=== PATIENT | female | born 2000 | race Caucasian/White ===

== ENCOUNTER 2022-03-02 07:11 | Inpatient (IN) | payer MEDICAID ==
[~2022-03-02] VITALS: Ht 167.6 cm; Wt 151.5 kg
[2022-03-02] MEDS ORDERED: MORPHINE SULFATE 4 MG/ML CPJ (NOT FOR IM USE) IV ONE ×2 (07:45→09:45)
[2022-03-02] MEDS ORDERED: ONDANSETRON HCL 4MG/2ML INJ IV ONE (07:45)
[2022-03-02 08:13] LABS: BASOPHILS % 0.2 % (0.0-2.0); EOSINOPHILS % 0.6 % (0.0-5.0); HEMOGLOBIN. 12.5 g/dL (12.0-16.0); LYMPHOCYTES % 12.5 % (20.0-50.0); MEAN CORPUSCULAR HEMOGLOBIN 27.5 pg (28.0-32.0); MEAN CORPUSCULAR VOLUME 85.5 fL (81.0-99.0); MEAN PLATELET VOLUME 8.9 fl (7.4-10.4); MONOCYTES % 6.7 % (2.0-8.0); PLATELET 329 x1000/uL (130-400); RED BLOOD CELL COUNT 4.56 mill/uL (4.2-5.4); RED CELL DISTRIBUTION WIDTH 14.5 % (11.6-14.6)
[2022-03-02 08:18] LABS: CLARITY URINE CLOUDY (CLEAR); COLOR URINE DARK YELLOW (YELLOW); KETONES URINE TRACE (NEGATIVE); LEUKOCYTE ESTERASE URINE 1+ (NEGATIVE); NITRITE URINE NEGATIVE (NEGATIVE); OCCULT BLOOD URINE TRACE (NEGATIVE); PH URINE 5.5 (4.5-8.0); PROTEIN URINE TRACE (NEGATIVE); SPECIFIC GRAVITY URINE 1.025 (1.005-1.030)
[2022-03-02 08:21] LABS: CHLORIDE 102 mEq/L (98-107)
[2022-03-02 08:24] LABS: HCG SCREEN NEGATIVE
[2022-03-02 09:31] LABS: INR 1.1
[2022-03-02] MEDS ORDERED: METRONIDAZOLE 500 MG PREMIX 100 ML IV ONE (09:45)
[2022-03-02] MEDS ORDERED: LEVOFLOXACIN 750MG PREMIX 150 ML IV ONE (09:45)
[2022-03-02] MEDS ORDERED: ACETAMINOPHEN 325MG TABLET PO PRN (17:00)
[2022-03-02] MEDS ORDERED: DIPHENHYDRAMINE 50MG/ML VIAL IV PRN (17:00)
[2022-03-02] MEDS ORDERED: CLONIDINE 0.1MG TABLET PO PRN (17:00)
[2022-03-02] MEDS ORDERED: ONDANSETRON HCL 4MG/2ML INJ IV PRN (17:00)
[2022-03-02] MEDS ORDERED: IPRATROPIUM/ALBUTEROL 0.5-3(2.5)MG/3ML NEB HHN PRN (17:00)
[2022-03-02] MEDS: SODIUM CHLORIDE 0.9% 1,000 ML IV SCH (17:30)
[2022-03-02 17:43] VITALS: BP 117/58
[2022-03-02] MEDS: MORPHINE SULFATE 2 MG/ML CPJ (NOT FOR IM USE) IV PRN (18:58)
[2022-03-02] MEDS: METRONIDAZOLE 500 MG PREMIX 100 ML IV SCH (21:39)
[2022-03-03] MEDS: MORPHINE SULFATE 2 MG/ML CPJ (NOT FOR IM USE) IV PRN ×4 (00:21→22:14)
[2022-03-03] MEDS: METRONIDAZOLE 500 MG PREMIX 100 ML IV SCH ×3 (05:13→22:09)
[2022-03-03] MEDS: SODIUM CHLORIDE 0.9% 1,000 ML IV SCH ×3 (05:14→17:30)
[2022-03-03 05:36] LABS: BASOPHILS % 0.2 % (0.0-2.0); HEMATOCRIT. 33.4 % (36.0-48.0); HEMOGLOBIN. 10.9 g/dL (12.0-16.0); LYMPHOCYTES % 17.7 % (20.0-50.0); MEAN CORPUSCULAR HEMOGLOBIN 27.8 pg (28.0-32.0); MONOCYTES % 7.2 % (2.0-8.0); NEUTROPHILS % 73.9 % (40.0-76.0); PLATELET 262 x1000/uL (130-400); RED BLOOD CELL COUNT 3.92 mill/uL (4.2-5.4); RED CELL DISTRIBUTION WIDTH 14.3 % (11.6-14.6)
[2022-03-03 06:22] LABS: CHLORIDE 106 mEq/L (98-107)
[2022-03-03 08:00] VITALS: BP 113/66
[2022-03-03] MEDS: LEVOFLOXACIN 500MG PREMIX 100 ML IV SCH (11:00)
[2022-03-03 12:00] VITALS: BP 133/74
[2022-03-03 16:00] VITALS: BP 122/55
[2022-03-03] MEDS ORDERED: NALOXONE HCL 0.4MG/ML VIAL IV PRN (17:30)
[2022-03-03 20:00] VITALS: BP 143/88
[2022-03-04] VITALS: BP 144/84
[2022-03-04 04:00] VITALS: BP 140/82
[2022-03-04] MEDS: MORPHINE SULFATE 2 MG/ML CPJ (NOT FOR IM USE) IV PRN ×2 (04:28→09:51)
[2022-03-04] MEDS: SODIUM CHLORIDE 0.9% 1,000 ML IV SCH ×3 (04:32→09:51)
[2022-03-04] MEDS: METRONIDAZOLE 500 MG PREMIX 100 ML IV SCH (05:28)
[2022-03-04 06:34] LABS: BASOPHILS % 0.3 % (0.0-2.0); EOSINOPHILS % 1.8 % (0.0-5.0); HEMATOCRIT. 33.2 % (36.0-48.0); HEMOGLOBIN. 11.1 g/dL (12.0-16.0); LYMPHOCYTES % 19.3 % (20.0-50.0); MEAN CORPUSCULAR HEMOGLOBIN 28.3 pg (28.0-32.0); MEAN PLATELET VOLUME 8.9 fl (7.4-10.4); NEUTROPHILS % 72.6 % (40.0-76.0); PLATELET 274 x1000/uL (130-400); RED BLOOD CELL COUNT 3.91 mill/uL (4.2-5.4); RED CELL DISTRIBUTION WIDTH 14.4 % (11.6-14.6)
[2022-03-04 06:39] LABS: INR 1.2; PROTHROMBIN TIME 12.7 sec (9.6-11.0)
[2022-03-04 07:08] LABS: CHLORIDE 104 mEq/L (98-107)
[2022-03-04 08:00] VITALS: BP 133/83
[2022-03-04] MEDS: LEVOFLOXACIN 500MG PREMIX 100 ML IV SCH (10:40)
[2022-03-04] MEDS ORDERED: ACET325T52 MT (11:29)
[2022-03-04] MEDS ORDERED: AMOX1TAB16 MT (11:29)
[2022-03-04 12:00] VITALS: BP 119/57
[2022-03-04 15:17] VITALS: BP 119/57
[2022-03-05] MEDS ORDERED: ONDA4TAB50 MT (15:28)
== END 2022-03-04 15:30 | disposition home or self-care (01) | DRG 720 ==
LOC: ER 07:11 → 6EST 12:43 → EDBEDREQ 12:48 → EDBEDREQTM 12:48
PROVIDERS: ADMIT Internal Medicine; ATTEND Internal Medicine
DX: A41.9 Sepsis, unspecified organism (principal); K57.92 Diverticulitis of intestine, part unspecified, without perforation or abscess without bleeding; E66.9 Obesity, unspecified; N39.0 Urinary tract infection, site not specified; F17.200 Nicotine dependence, unspecified, uncomplicated; Z68.43 Body mass index [BMI] 50.0-59.9, adult; Z87.442 Personal history of urinary calculi; J45.909 Unspecified asthma, uncomplicated
CPT/HCPCS: 36415; 74176; 80048; 80053; 80076; 81003; 84703; 85025; 99285; J1956; J2270; J2405; J3490; J7030

== ENCOUNTER 2022-03-05 10:42 | Emergency (ER) | payer MEDICAID ==
[~2022-03-05] VITALS: Ht 160 cm; Wt 181.8 kg
[~2022-03-05 10:42] MED LIST: ACET325T52 MT; AMOX1TAB16 MT
[2022-03-05] MEDS ORDERED: MORPHINE SULFATE 4 MG/ML CPJ (NOT FOR IM USE) IV STA (11:56)
[2022-03-05] MEDS ORDERED: ONDANSETRON HCL 4MG/2ML INJ IV STA (11:56)
[2022-03-05] MEDS ORDERED: SODIUM CHLORIDE 0.9% 1,000 ML IV ONE (12:00)
[2022-03-05 12:35] LABS: BASOPHILS % 0.4 % (0.0-2.0); EOSINOPHILS % 0.6 % (0.0-5.0); HEMATOCRIT. 37.7 % (36.0-48.0); HEMOGLOBIN. 12.3 g/dL (12.0-16.0); LYMPHOCYTES % 14.4 % (20.0-50.0); MEAN CORPUSCULAR HEMOGLOBIN 27.5 pg (28.0-32.0); MEAN CORPUSCULAR VOLUME 84.3 fL (81.0-99.0); MEAN PLATELET VOLUME 8.6 fl (7.4-10.4); MONOCYTES % 5.2 % (2.0-8.0); NEUTROPHILS % 79.4 % (40.0-76.0); PLATELET 359 x1000/uL (130-400); RED BLOOD CELL COUNT 4.47 mill/uL (4.2-5.4); RED CELL DISTRIBUTION WIDTH 14.5 % (11.6-14.6)
[2022-03-05 12:38] LABS: CHLORIDE 103 mEq/L (98-107)
[2022-03-05 12:46] LABS: HCG SCREEN NEGATIVE
[2022-03-05] MEDS ORDERED: ONDA4TAB50 MT (15:28)
[2022-03-05] MEDS ORDERED: AMOXICILLIN/POTASSIUM CLAVULANATE 875/125MG TAB PO NR (15:30)
[2022-03-05 15:55] VITALS: BP 113/95
[2022-03-05] MEDS ORDERED: IOHEXOL-300 100 ML BOTTLE ONE (16:09)
== END 2022-03-05 16:06 | disposition home or self-care (01) ==
LOC: ER 10:42
DX: R10.9 Unspecified abdominal pain (principal); R11.2 Nausea with vomiting, unspecified
CPT/HCPCS: 36415; 74177; 80053; 83605; 83690; 84703; 85025; 96361; 96374; 96375; 99285; J2270; J2405; J7030; Q9967

== ENCOUNTER 2022-06-30 12:19 | Emergency (ER) | payer MEDICAID ==
[~2022-06-30] VITALS: Ht 170.2 cm; Wt 106.0 kg
[~2022-06-30 12:19] MED LIST changes: +ONDA4TAB50 MT
[2022-06-30] MEDS ORDERED: FAMOTIDINE 20MG/2ML VIAL IV ONE (13:00)
[2022-06-30] MEDS ORDERED: ONDANSETRON HCL 4MG/2ML INJ IV ONE (13:00)
[2022-06-30] MEDS ORDERED: SODIUM CHLORIDE 0.9% 1,000 ML IV ONE (13:00)
[2022-06-30] MEDS ORDERED: MORPHINE SULFATE 2 MG/ML CPJ (NOT FOR IM USE) IV ONE (14:00)
[2022-06-30 14:15] VITALS: BP 117/68
[2022-06-30 14:21] LABS: BASOPHILS % 0.2 % (0.0-2.0); EOSINOPHILS % 0.4 % (0.0-5.0); HEMATOCRIT. 37.4 % (36.0-48.0); HEMOGLOBIN. 12.4 g/dL (12.0-16.0); LYMPHOCYTES % 10.6 % (20.0-50.0); MEAN CORPUSCULAR HEMOGLOBIN 28.5 pg (28.0-32.0); MEAN CORPUSCULAR VOLUME 85.6 fL (81.0-99.0); MEAN PLATELET VOLUME 8.8 fl (7.4-10.4); MONOCYTES % 4.3 % (2.0-8.0); NEUTROPHILS % 84.5 % (40.0-76.0); PLATELET 316 x1000/uL (130-400); RED BLOOD CELL COUNT 4.37 mill/uL (4.2-5.4); RED CELL DISTRIBUTION WIDTH 13.9 % (11.6-14.6)
[2022-06-30 14:40] LABS: INR 1.1; PROTHROMBIN TIME 11.9 sec (9.6-11.0)
[2022-06-30 14:41] LABS: HCG SCREEN NEGATIVE
[2022-06-30 14:43] LABS: CHLORIDE 107 mEq/L (98-107)
== END 2022-06-30 17:04 | disposition left against medical advice (07) ==
LOC: ER 13:37
DX: R10.84 Generalized abdominal pain (principal); J45.909 Unspecified asthma, uncomplicated
CPT/HCPCS: 36415; 80053; 83690; 84703; 85025; 85610; 96361; 96374; 96375; 99284; J2270; J2405; J3490; J7030

== ENCOUNTER 2022-12-01 08:48 | Emergency (ER) | payer OTHER ==
[~2022-12-01] VITALS: Ht 160 cm; Wt 165.0 kg
[2022-12-01 09:05] VITALS: O2SAT 98
[2022-12-01 10:41] LABS: CLARITY URINE CLOUDY (CLEAR); COLOR URINE YELLOW (YELLOW); GLUCOSE URINE NEGATIVE (NEGATIVE); KETONES URINE NEGATIVE (NEGATIVE); LEUKOCYTE ESTERASE URINE TRACE (NEGATIVE); NITRITE URINE NEGATIVE (NEGATIVE); OCCULT BLOOD URINE NEGATIVE (NEGATIVE); PH URINE 5.5 (4.5-8.0); PROTEIN URINE NEGATIVE (NEGATIVE); SPECIFIC GRAVITY URINE 1.024 (1.005-1.030)
[2022-12-01 10:44] LABS: SQUAMOUS EPITHELIAL CELL URINE 1+ /lpf (RARE/1+); YEAST URINE NONE SEEN
[2022-12-01 11:03] LABS: BACTERIA URINE FEW; RBC URINE 0-2 /hpf (0-2)
[2022-12-01] MEDS: KETOROLAC 30MG/ML VIAL IM ONE ×2 (11:54→12:25)
[2022-12-01] MEDS ORDERED: DIF15 MT (12:11)
[2022-12-01 12:51] VITALS: BP 128/86; PULSE 70; RESP 16; TEMP 98.6
== END 2022-12-01 12:53 | disposition home or self-care (01) ==
LOC: ER 08:48
DX: Z11.3 Encounter for screening for infections with a predominantly sexual mode of transmission (principal)
CPT/HCPCS: 81003; 76830; 76856; 96372; 99285; J1885; Z7610 ×3

== ENCOUNTER 2023-04-24 07:53 | Emergency (ER) | payer MEDICAID, OTHER ==
[~2023-04-24] VITALS: Ht 160 cm; Wt 154.0 kg
[~2023-04-24 07:53] MED LIST changes: +DIF15 MT
[2023-04-24 07:56] VITALS: O2SAT 100
[2023-04-24 08:41] LABS: BASOPHILS % 0.4 % (0.0-2.0); EOSINOPHILS % 1.3 % (0.0-5.0); HEMATOCRIT. 38.5 % (36.0-48.0); HEMOGLOBIN. 12.9 g/dL (12.0-16.0); MEAN CORPUSCULAR HEMOGLOBIN 29.4 pg (28.0-32.0); MEAN CORPUSCULAR HGB CONC 33.6 g/dL (31.0-37.0); MEAN CORPUSCULAR VOLUME 87.4 fL (81.0-99.0); MEAN PLATELET VOLUME 8.9 fl (7.4-10.4); MONOCYTES % 5.1 % (2.0-8.0); NEUTROPHILS % 72.2 % (40.0-76.0); PLATELET 354 x1000/uL (130-400); RED BLOOD CELL COUNT 4.41 mill/uL (4.2-5.4); RED CELL DISTRIBUTION WIDTH 13.7 % (11.6-14.6); WHITE BLOOD COUNT 9.4 x1000/uL (4.5-11.0)
[2023-04-24 08:48] LABS: CLARITY URINE CLEAR (CLEAR); COLOR URINE YELLOW (YELLOW); GLUCOSE URINE NEGATIVE (NEGATIVE); KETONES URINE NEGATIVE (NEGATIVE); LEUKOCYTE ESTERASE URINE 2+ (NEGATIVE); NITRITE URINE NEGATIVE (NEGATIVE); OCCULT BLOOD URINE TRACE (NEGATIVE); PROTEIN URINE NEGATIVE (NEGATIVE); SPECIFIC GRAVITY URINE 1.022 (1.005-1.030)
[2023-04-24 09:00] LABS: ALANINE AMINOTRANSFERASE 15 IU/L (10-49); ALBUMIN 4.3 g/dL (3.2-4.8); ASPARTATE AMINOTRANSFERASE 18 IU/L (<34); BILIRUBIN TOTAL 0.5 mg/dL (0.1-1.0); CARBON DIOXIDE 27 mEq/L (21-32); CHLORIDE 104 mEq/L (98-107); CREATININE 0.8 mg/dL (0.6-1.0); GLUCOSE 94 mg/dL (70-105); POTASSIUM 4.4 mEq/L (3.5-5.1); PROTEIN TOTAL 8.9 g/dL (6.0-8.3); SODIUM 136 mEq/L (136-145); UREA NITROGEN BLOOD 14 mg/dL (9-23)
[2023-04-24 09:06] LABS: SQUAMOUS EPITHELIAL CELL URINE 3+ /lpf (RARE/1+)
[2023-04-24 09:07] LABS: BACTERIA URINE 1+
[2023-04-24 09:08] LABS: WBC URINE 15-25 /hpf (0-2)
[2023-04-24 09:09] LABS: RBC URINE 0-2 /hpf (0-2)
[2023-04-24] MEDS: ACETAMINOPHEN 325MG TABLET PO ONE (09:56)
[2023-04-24] MEDS: CEFTRIAXONE SODIUM 1G VIAL IM NR (10:11)
[2023-04-24] MEDS: LIDOCAINE HCL 1% 10 MG/ML 10ML VIAL IJ NR (10:11)
[2023-04-24] MEDS ORDERED: CEFP100T8 MT (10:49)
[2023-04-24 10:59] VITALS: BP 139/51; PULSE 70; RESP 18; TEMP 98.7
== END 2023-04-24 11:01 | disposition home or self-care (01) ==
LOC: ER 07:53
DX: N39.0 Urinary tract infection, site not specified (principal); J45.909 Unspecified asthma, uncomplicated; Z79.899 Other long term (current) drug therapy
CPT/HCPCS: 99283; 80053; 81003; 81025; 83690; 85025; 87086; 36415; 96372; J0696; J3490

== ENCOUNTER 2023-09-19 14:53 | Emergency (ER) | payer MEDICAID, OTHER ==
[~2023-09-19] VITALS: Ht 175.3 cm; Wt 114.0 kg
[~2023-09-19 14:53] MED LIST changes: +CEFP100T8 MT
[2023-09-19 14:59] VITALS: BP 140/80; PULSE 100; RESP 18; TEMP 98.6; O2SAT 100
[2023-09-19 15:58] LABS: BASOPHILS % 0.3 % (0.0-2.0); EOSINOPHILS % 0.3 % (0.0-5.0); HEMATOCRIT. 27.3 % (36.0-48.0); HEMOGLOBIN. 8.8 g/dL (12.0-16.0); LYMPHOCYTES % 7.8 % (20.0-50.0); MEAN CORPUSCULAR HEMOGLOBIN 26.8 pg (28.0-32.0); MEAN CORPUSCULAR HGB CONC 32.3 g/dL (31.0-37.0); MEAN CORPUSCULAR VOLUME 82.9 fL (81.0-99.0); MEAN PLATELET VOLUME 8.6 fl (7.4-10.4); MONOCYTES % 6.7 % (2.0-8.0); NEUTROPHILS % 84.9 % (40.0-76.0); PLATELET 442 x1000/uL (130-400); RED CELL DISTRIBUTION WIDTH 14.8 % (11.6-14.6); WHITE BLOOD COUNT 16.7 x1000/uL (4.5-11.0)
[2023-09-19 16:04] LABS: CHLORIDE 103 mEq/L (98-107); POTASSIUM 3.1 mEq/L (3.5-5.1); SODIUM 136 mEq/L (136-145)
[2023-09-19 16:05] LABS: CARBON DIOXIDE 28 mEq/L (21-32)
[2023-09-19 16:06] LABS: CALCIUM 8.4 mg/dL (8.7-10.4)
[2023-09-19 16:08] LABS: HCG SCREEN NEGATIVE
[2023-09-19 16:10] LABS: CREATININE 0.7 mg/dL (0.6-1.0); GLUCOSE 111 mg/dL (70-105)
[2023-09-19 16:11] LABS: UREA NITROGEN BLOOD 8 mg/dL (9-23)
[2023-09-19 16:12] LABS: ALANINE AMINOTRANSFERASE 16 IU/L (10-49); ALBUMIN 3.4 g/dL (3.2-4.8); ASPARTATE AMINOTRANSFERASE 27 IU/L (<34)
[2023-09-19 16:13] LABS: BILIRUBIN DIRECT 0.7 mg/dL (<=3.0); PROTEIN TOTAL 7.1 g/dL (6.0-8.3)
[2023-09-19] MEDS ORDERED: ONDANSETRON 4MG ODT PO ONE (17:30)
[2023-09-19] MEDS ORDERED: KETOROLAC 30MG/ML VIAL IM ONE (17:30)
== END 2023-09-19 17:55 | disposition left against medical advice (07) ==
LOC: ER 15:40
DX: R10.9 Unspecified abdominal pain (principal); J45.909 Unspecified asthma, uncomplicated; Z90.49 Acquired absence of other specified parts of digestive tract
CPT/HCPCS: 99284; 80076; 80048; 84703; 83690; 85025; 36415; 93005; Q0162; J1885